=== PATIENT | male | born 1995 | race African-American/Black ===

== ENCOUNTER → 2019-01-18 | Emergency (ER) | payer SELFPAY ==
[~2019-01-18] VITALS: Ht 182.9 cm; Wt 75.0 kg
[~2019-01-18] MED LIST: IBUPROFEN 600MG TABLET PO ONE
[2019-01-18 22:55] VITALS: BP 121/85
== END | disposition home or self-care (01) ==
LOC: ER 20:07
DX: S60.211A Contusion of right wrist, initial encounter (principal); S80.02XA Contusion of left knee, initial encounter; S80.01XA Contusion of right knee, initial encounter; F17.210 Nicotine dependence, cigarettes, uncomplicated; V00.131A Fall from skateboard, initial encounter; Y93.89 Activity, other specified; Y92.89 Other specified places as the place of occurrence of the external cause
CPT/HCPCS: 73110; 73562; 99283